=== PATIENT | female | born 1975 | race Caucasian/White ===

== ENCOUNTER → 2020-04-30 15:29 | Outpatient (CLI) | payer OTHER, SELFPAY ==
--- NOTE | ~2020-04-30 | US_ITS ---
EXAMINATION: US axilla LT HISTORY: Palpable, persistent mass of the left axilla for one month TECHNIQUE: Targeted ultrasound of the left axilla was performed. FINDINGS: There is no evidence of suspicious cystic or solid mass in the vicinity of the reported lef t axilla mass. Normal-appearing lymph nodes are present. IMPRESSION: No specific sonographic correlate is identified for the left axillary mass. Further evaluation at thi s time should be based on clinical assessment. Continued follow-up physical examination is recommende d. BI-RADS Category 1: Negative Reviewed, dictated and finalized at location A. IMPRESSION: No specific sonographic correlate is identified for the left axillary mass. Fur ther evaluation at this time should be based on clinical assessment. Continued follow-up physical examination is recommended. BI-RADS Category 1: Negative
== END ==
PROVIDERS: Visit Provider Nurse Practitioner
DX: R22.2 Localized swelling, mass and lump, trunk (principal)
CPT/HCPCS: 76882

== ENCOUNTER → 2020-09-05 11:18 | Outpatient (CLI) | payer OTHER, SELFPAY ==
--- NOTE | ~2020-09-05 | MM_ITS ---
EXAMINATION: MM screening [facility] BI w peter HISTORY: Screening mammogram TECHNIQUE: Craniocaudal and mediolateral oblique 3-D tomosynthesis images were obtained and synthetic 2-D images were generated. CAD analysis was submitted and interpreted. COMPARISON: 07/07/2019, 07/01/2018, 03/01/2017 BREAST PARENCHYMAL COMPOSITION: There are scattered areas of fibroglandular density. FINDINGS: There is no evidence of suspicious mass, calcification, or architectural distortion to sugg est malignancy in either breast. There has been no suspicious interval change. IMPRESSION: 1. No mammographic evidence of malignancy. 2. Recommend routine screening mammography in one year. BI-RADS Category 1: Negative Reviewed, dictated and finalized at location A. RDS MANAGEMENT MANAGER
== END ==
PROVIDERS: PCP Physician Assistant; Visit Provider Nurse Practitioner
DX: Z12.31 Encounter for screening mammogram for malignant neoplasm of breast (principal)
CPT/HCPCS: 77063; 77067

== ENCOUNTER → 2021-09-08 15:03 | Outpatient (CLI) | payer OTHER, SELFPAY ==
--- NOTE | ~2021-09-08 | MM_ITS ---
EXAMINATION: MM screening [facility] BI w peter HISTORY: Screening mammogram TECHNIQUE: Craniocaudal and mediolateral oblique 3-D tomosynthesis images were obtained and synthetic 2-D images were generated. CAD analysis was submitted and interpreted. COMPARISON: 09/05/2020, 07/07/2019, 07/01/2018 BREAST PARENCHYMAL COMPOSITION: The breasts are heterogeneously dense, which may obscure small masses . FINDINGS: There is no evidence of suspicious mass, calcification, or architectural distortion to sugg est malignancy in either breast. There has been no suspicious interval change. IMPRESSION: 1. No mammographic evidence of malignancy. 2. Recommend routine screening mammography in one year. BI-RADS Category 1: Negative Reviewed, dictated and finalized at location A. SAFETY INSPECTOR
== END ==
PROVIDERS: PCP Physician Assistant; Visit Provider Nurse Practitioner
DX: Z12.31 Encounter for screening mammogram for malignant neoplasm of breast (principal)
CPT/HCPCS: 77063; 77067

== ENCOUNTER → 2022-08-03 14:50 | Outpatient (CLI) | payer OTHER, SELFPAY ==
--- NOTE | ~2022-08-03 | US_ITS ---
EXAMINATION: US pelvic complete w TV DATE: 08/03/2022 15:22 INDICATION: Enlarged uterus. Comparison:Ultrasound dated 04/29/2015 TECHNIQUE: Multiple transabdominal and endovaginal sonographic images of the pelvis performed. FINDINGS: The uterus measures 9.6 x 5.4 x 5.8 cm. There is a uterine fibroid measuring 3.1 x 3 x 2.8 cm. The endometrial complex measures 9 mm. The right ovary measures 3.4 x 2.2 x 2.2 cm and the left ovary measures 2.5 x 1.8 x 2.1 cm. There ar e small follicles in each ovary. There is a right renal cyst measuring 2.4 cm. Normal doppler signal in both ovaries. There is no free fluid in the pelvis. There are no abnormal masses seen on either side. IMPRESSION: 1. Enlarged fibroid uterus. 2: Right renal cyst measuring 2.4 cm. Reviewed, dictated and finalized at location A. ITY SYSTEMS SPECIALIST
== END ==
PROVIDERS: PCP Physician Assistant; Visit Provider Obstetrics & Gynecology Gynecology
DX: R19.09 Other intra-abdominal and pelvic swelling, mass and lump (principal); D25.9 Leiomyoma of uterus, unspecified; N28.1 Cyst of kidney, acquired
CPT/HCPCS: 76830; 76856

== ENCOUNTER 2023-07-04 10:10 | Emergency (ER) | payer BC, SELFPAY ==
--- NOTE | 2023-07-04 10:13 | ED.URI ---
HPI - URI/Sore Throat General Chief Complaint: Upper Respiratory Infection Stated Complaint: Cough Time Seen by Provider: 07/04/23 10:29 Source: patient, RN notes reviewed and old records reviewed Mode of arrival: ambulatory Limitations: no limitations History of Present Illness HPI Narrative: 47-year-old female presents to the [facility] with complaints of a cough for 10 days First couple days she has had congestion, that has subsided but the cough has not gone away. Has been through an entire box of Mucinex max. Denies shortness of breath, chest pain, abdominal pain. Denies fevers recently. Onset (ago): day(s) (10) Treatments prior to arrival: cold medicine Related Data Allergies Allergy/AdvReac Type Severity Reaction Status Date / Time NA Allergy Mild Uncoded 12/19/08 12:07 NKA Allergy Unknown Uncoded 02/27/03 12:39 NKDA Allergy Unknown Uncoded 02/27/03 12:39 Review of Systems Review of Systems: All systems reviewed & are unremarkable except as noted in HPI and below Constitutional: Constitutional: Reports no additional constitutional complaints Eyes: Eyes: Reports no additional eye complaints ENT: Reports system reviewed and no additional complaints, except as documented Cardiovascular: Cardiovascular: Reports no additional cardiovascular complaints, Denies chest pain and Denies dyspnea Respiratory: Respiratory: Reports as per HPI, Denies chest congestion, Reports cough and Denies dyspnea Gastrointestinal: Gastrointestinal: Reports no additional gastrointestinal complaints, Denies abdominal pain, Denies nausea and Denies vomiting Musculoskeletal: Musculoskeletal: Reports no additional musculoskeletal complaints Integumentary/Breasts: Skin/Breast: Reports system reviewed and no additional complaints, except as docu Neurologic: Reports system reviewed and no additional complaints, except as documented Psychiatric: Psychiatric: Reports no additional psychiatric complaints Allergic/Immunologic: Allergic/Immunologic: Reports no additional allergic/immunologic complaints [facility] Past Medical History Medical History (Updated 07/05/23 @ 00:00 by Kirk Escalante) B12 deficiency Social History Social History Smoking status: Never smoker Alcohol intake: never Comments At the time of my signature, I reviewed and agree with the nursing past medical, surgical, social, and family history. There is no relevant family history pertinent to the patient complaint. Exam Const: General: cooperative, healthy appearing, comfortable, no acute distress, well developed, alert and well nourished Nutritional Appearance: well nourished Orientation/consciousness: patient oriented x3 Limitations: no limitations HENMT: Head: normal to inspection Ears: hearing grossly normal bilaterally and external ears normal Face/Nose/Sinus: Normal external nose present, Normal nares present, Normal nasal mucous membranes and turbinates present, normal facial exam and face symmetric Face and sinus: normal facial exam and face symmetric Mouth: Yes Normal oral and palatal mucosa present, Yes lip normal and Yes moist mucous membranes Throat: posterior oropharynx normal and uvula midline Eyes: General: appearance normal, both eyes and all related structures Alignment and Position: alignment normal Periorbital: periorbital findings normal Pupils: Equal, round and reactive pupils present EOM: EOMs intact bilaterally Neck: Neck: normal visual inspection, full ROM, no lymphadenopathy and no meningeal signs Chest: Chest palpation & inspection: normal inspection of the chest Resp: Effort & Inspection: normal respiratory effort and able to speak in complete sentences Auscultation: no crackles, no rales, no rhonchi and wheezes (Left lower) Cardio: Rate: regular rate Rhythm: regular rhythm Back/Spine/Pelvis: Cervical Spine: cervical ROM normal Skin: General skin exam: normal color
[2023-07-04 10:22] VITALS: BP 129/82; PULSE 67; RESP 16; TEMP 36.4; O2SAT 100
== END 2023-07-04 10:42 | disposition home or self-care (01) ==
PROVIDERS: Emergency Provider Nurse Practitioner; PCP Physician Assistant
DX: J40 Bronchitis, not specified as acute or chronic (principal)
CPT/HCPCS: 99203; G0463

== ENCOUNTER → 2023-09-24 11:12 | Outpatient (CLI) | payer BC, SELFPAY ==
--- NOTE | ~2023-09-24 | MM_ITS ---
EXAMINATION: MM screening [facility] BI w peter HISTORY: Screening TECHNIQUE: Craniocaudal and mediolateral oblique 3-D tomosynthesis images were obtained and synthetic 2-D images were generated. CAD analysis was submitted and interpreted. COMPARISON: Comparison to multiple prior studies sequentially, with oldest reviewed study dated 06/07. BREAST PARENCHYMAL COMPOSITION: Breast composed of scattered areas of fibroglandular density FINDINGS: There is no evidence of suspicious mass, calcification, or architectural distortion to sugg est malignancy in either breast. There has been no suspicious interval change. IMPRESSION: 1. No mammographic evidence of malignancy. 2. Recommend routine screening mammography in one year. BI-RADS Category 1: Negative Reviewed, dictated and finalized at location A. OGRAPHER SECRETARY
== END ==
PROVIDERS: PCP Obstetrics & Gynecology Gynecology; Visit Provider Obstetrics & Gynecology Gynecology
DX: Z12.31 Encounter for screening mammogram for malignant neoplasm of breast (principal)
CPT/HCPCS: 77063; 77067

== ENCOUNTER 2023-12-13 15:40 | Outpatient (CLI) | payer BC, SELFPAY ==
--- NOTE | ~2023-12-13 | US_ITS ---
Pelvic ultrasound. Clinical History: Pelvic pain Technique: Realtime transabdominal and transvaginal scanning of the pelvis was performed. Color flow Doppler and Doppler spectral analysis were performed. Findings: The uterus is anteverted. The endometrial stripe has a thickness of 9 mm. Posterior wall f ibroid measures 3.9 cm in diameter. The right ovary measures 1.8 x 1.8 x 1.4 cm. No significant right ovarian or adnexal mass is seen. The left ovary measures 2.5 x 1.8 x 3.2 cm. No significant left ovarian or adnexal mass is seen. Vascular flow present in both ovaries on Doppler spectral analysis. There is no evidence of free fluid in the cul de sac. Impression: 3.9 cm uterine fibroid. Reviewed, dictated and finalized at [facility]. Impression: 3.9 cm uterine fibroid.
== END 2023-12-13 15:41 ==
PROVIDERS: PCP Obstetrics & Gynecology Gynecology; Visit Provider Nurse Practitioner
DX: R10.2 Pelvic and perineal pain (principal); D25.9 Leiomyoma of uterus, unspecified
CPT/HCPCS: 76830

== ENCOUNTER 2024-11-24 10:10 | Outpatient (CLI) | payer BC, SELFPAY ==
--- NOTE | ~2024-11-24 | MM_ITS ---
EXAMINATION: MM screening paul BI w peter HISTORY: Screening TECHNIQUE: Craniocaudal and mediolateral oblique 3-D tomosynthesis images were obtained and synthetic 2-D images were generated. CAD analysis was submitted and interpreted. COMPARISON: Comparison to multiple prior studies sequentially, with oldest reviewed study dated 03/01. BREAST PARENCHYMAL COMPOSITION: Not dense: There are scattered areas of fibroglandular density. FINDINGS: There is a new small subareolar mass in the right breast seen on CC view. The left breast i s stable without evidence for malignancy. IMPRESSION: 1. New small subareolar mass of the right breast on CC view only. 2. Additional mammographic views and possible breast ultrasound are recommended. BI-RADS Category 0: Incomplete: Needs additional imaging evaluation. Reviewed, dictated and finalized at location B. IMPRESSION: 1. New small subareolar mass of the right breast on CC view only. 2. Additional mammographic views and possible breast ultrasound are recommended . BI-RADS Category 0: Incomplete: Needs additional imaging evaluation.
--- OUTSIDE RECORDS SUMMARY | 2024-11-24 11:18 | XMS_ITS | Data Portability ---
Author Organization [facility] Looking for Gamers, Main Office Address [address] [place] [address] Assessment No assessment recorded. Plan of Treatment Reminders Order Date Submit Date Provider Last Modified By Organization Details Last Modified Time Details Appointments None recorded. Lab HbA1c (hemoglobi n A1c), blood 2022 023 [place] [facility], [id number] , [address], [place], [address], 3 12:10:37 Referral None recorded. Procedures None recorded. Surgeries None recorded. Imaging MRI, brain, w/wo contrast 2022 023 [email or web address] [facility], [address], [address], [place], [address], 3 12:46:26 Medication Orders None recorded. Patient TargetsNo targets recorded. Patient InstructionsNo instructions recorded. Reason for Referral None Reported. Results Created Date Observation Date Name Description Value Unit Range Abnormal Flag Note LastModifiedBy Organization Detail LastModifiedTime 05/02/2005/03/2021 HEMOG LOBIN A1C hemoglobin A1C 5.7 % 4.8-5. 6 above high normal Predi abete s: 5.7 - 6.4 Diabe darleen: >6.4 Glyce fabrice contr ol for adult s with diabe darleen: <7.0 Not Available [facility] ([facility]) [address] [facility], [place], [address], 05/03/2021 07:10:53 05/02/20 21 05/03/2021 VITAM IN B12 AND FOLAT E vitamin B12 317 pg/mL 232-12 45 Not Available [facility] ([facility]) [address] [facility], [place], [address], 05/03/2021 07:10:53 05/02/20 21 05/03/2021 VITAM IN B12 AND FOLAT E folate (folic acid), serum 19.8 NG/mL >3.0 A serum folat e zuleika ntrat ion of less than 3.1 ng/mL is consi dered to repre sent clini natalio defic iency . Not Available [facility] ([facility]) [address] [facility], [place], [address], 05/03/2021 07:10:53 05/02/20 21 05/03/2021 LIPID PANEL W/ CHOL/ HDL RATIO cholesterol, total 211 mg/dL 100-19 9 above high normal Not Available [facility] ([facility]) [address] [place], [address], 05/03/2021 07:10:52 05/02/20 21 05/03/2021 LIPID PANEL W/ CHOL/ HDL RATIO triglyceride s 93 mg/dL 0-149 Not Available [facility] ([facility]) [address] [place], [address], 05/03/2021 07:10:52 05/02/20 21 05/03/2021 LIPID PANEL W/ CHOL/ HDL RATIO HDL cholesterol 73 mg/dL >39 Not Available [facility] ([facility]) [address] [place], [address], 05/03/2021 07:10:52 05/02/20 21 05/03/2021 LIPID PANEL W/ CHOL/ HDL RATIO VLDL cholesterol natalio 16 mg/dL 5-40 Not Available [facility] ([facility]) [address] [place], [address], 05/03/2021 07:10:52 05/02/20 21 05/03/2021 LIPID PANEL W/ CHOL/ HDL RATIO LDL chol calc ([facility]) 122 mg/dL 0-99 above high normal Not Available [facility] ([facility]) [address] 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, [place], [address], 05/03/2021 07:10:52 05/02/20 21 05/03/2021 LIPID PANEL W/ CHOL/ HDL RATIO T. chol/HDL ratio 2.9 ratio 0.0-4. 4 T. Chol/ HDL Ratio Men Women 1/2 Avg.R isk 3.4 3.3 Avg.R isk 5.0 4.4 2X Avg.R isk 9.6 7.1 3X Avg.R isk 23.4 11.0 Not Available [facility] ([facility]) [address] [facility], [place], [address], 05/03/2021 07:10:52 05/02/20 21 05/03/2021 URINA LYSIS , ROUTI NE specific gravity 1.015 1.005- 1.030 Not Available [facility] ([facility]) [address] [facility], [place], [address], 05/03/2021 07:10:52 05/02/20 21 05/03/2021 URINA LYSIS , ROUTI NE pH 7.0 5.0-7. 5 Not Available [facility] ([facility]) [address] [place], [address], 05/03/2021 07:10:52 05/02/20 21 05/03/2021 URINA LYSIS , ROUTI NE urine-color yellow yellow Not Available [facility] ([facility]) [address] [facility], [place], [address], 05/03/2021 07:10:52 05/02/20 21 05/03/2021 URINA LYSIS , ROUTI NE appearance clear clear Not Available [facility] ([facility]) [address] [facility], [place], [address], 05/03/2021 07:10:52 05/02/20 21 05/03/2021 URINA LYSIS , ROUTI NE WBC esterase negati ve negati ve Not Available [facility] ([facility]) [address] [facility], [place], [address], 05/03/2021 07:10:52 05/02/20 21 05/03/2021 URINA LYSIS , ROUTI NE protein negati ve negati ve/tra ce Not Available [facility] ([facility]) [address] [facility], [place], [address], 05/03/2021 07:10:52 05/02/20 21 05/03/2021 URINA LYSIS , ROUTI NE glucose negati ve negati ve Not Available [facility] ([facility]) [address] [facility], [place], [address], 05/03/2021 07:10:52 05/02/20 21 05/03/2021 URINA LYSIS , ROUTI NE ketones negati ve negati ve Not Available [facility] ([facility]) [address] [facility], [place], [address], 05/03/2021 07:10:52 05/02/20 21 05/03/2021 URINA LYSIS , ROUTI NE occult blood negati ve negati ve Not Available [facility] ([facility]) [address] [facility], [place], [address], 05/03/2021 07:10:52 05/02/20 21 05/03/2021 URINA LYSIS , ROUTI NE bilirubin negati ve negati ve Not Available [facility] ([facility]) [address] [facility], [place], [address], 05/03/2021 07:10:52 05/02/20 21 05/03/2021 URINA LYSIS , ROUTI NE urobilinogen ,semi-qn 0.2 mg/dL 0.2-1. 0 Not Available [facility] ([facility]) [address] [place], [address], 05/03/2021 07:10:52 05/02/20 21 05/03/2021 URINA LYSIS , ROUTI NE nitrite, urine negati ve negati ve Not Available [facility] ([facility]) [address] [place], [address], 05/03/2021 07:10:52 05/02/2005/03/2021 URINA LYSIS , ROUTI NE microscopic examination commen t Micro scopi c not indic ated and not perfo rmed. Not Available [facility] ([facility]) [address] [place], [address], 05/03/2021 07:10:52 05/02/20 21 05/03/2021 COMP. METAB OLIC PANEL (14) glucose 100 mg/dL 65-99 above high normal Not Available [facility] ([facility]) [address] [place], [address], 05/03/2021 07:10:51 05/02/20 21 05/03/2021 COMP. METAB OLIC PANEL (14) BUN 10 mg/dL 6-24 Not Available [facility] ([facility]) [address] [place], [address], 05/03/2021 07:10:51 05/02/20 21 05/03/2021 COMP. METAB OLIC PANEL (14) creatinine 0.78 mg/dL 0.57-1 .00 Not Available [facility] ([facility]) [address] [place], [address], 05/03/2021 07:10:51 05/02/20 21 05/03/2021 COMP. METAB OLIC PANEL (14) eGFR if nonafricn AM 91 mL/mi n/1.7 3 >59 Not Available [facility] ([facility]) [address] [place], [address], 05/03/2021 07:10:51 05/02/20 21 05/03/2021 COMP. METAB OLIC PANEL (14) eGFR if africn AM 105 mL/mi n/1.7 3 >59 Lab sophia curre ntly repor ts eGFR in compl iance with the curre nt recom menda tions of the [facility]io n[facility] [employer] ation . [facility] will updat e repor ting as new guide lines are publi shed from the NKF-A SN Task force . Not Available [facility] ([facility]) [address] [facility], [place], [address], 05/03/2021 07:10:51 05/02/20 21 05/03/2021 COMP. METAB OLIC PANEL (14) BUN/creatini ne ratio 13 9-23 Not Available [facility] ([facility]) [address] [place], [address], 05/03/2021 07:10:51 05/02/20 21 05/03/2021 COMP. METAB OLIC PANEL (14) sodium 140 mmol/ L 134-14 4 Not Available [facility] ([facility]) [address] [place], [address], 05/03/2021 07:10:51 05/02/20 21 05/03/2021 COMP. METAB OLIC PANEL (14) potassium 4.6 mmol/ L 3.5-5. 2 Not Available [facility] ([facility]) [address] [place], [address], 05/03/2021 07:10:51 05/02/20 21 05/03/2021 COMP. METAB OLIC PANEL (14) chloride 105 mmol/ L 96-106 Not Available [facility] ([facility]) [address] [place], [address], 05/03/2021 07:10:51 05/02/20 21 05/03/2021 COMP. METAB OLIC PANEL (14) carbon dioxide, total 23 mmol/ L Not Available [facility] ([facility]) [address] [place], [address], 05/03/2021 07:10:51 05/02/20 21 05/03/2021 COMP. METAB OLIC PANEL (14) calcium 9.3 mg/dL 8.7-10 .2 Not Available [facility] ([facility]) [address] [place], [address], 05/03/2021 07:10:51 05/02/20 21 05/03/2021 COMP. METAB OLIC PANEL (14) protein, total 6.7 g/dL 6.0-8. 5 Not Available [facility] ([facility]) [address] [facility] [place], [address], 05/03/2021 07:10:51 05/02/20 21 05/03/2021 COMP. METAB OLIC PANEL (14) albumin 4.2 g/dL 3.8-4. 8 Not Available [facility] ([facility]) [address] [place], [address], 05/03/2021 07:10:51 05/02/20 21 05/03/2021 COMP. METAB OLIC PANEL (14) globulin, total 2.5 g/dL 1.5-4. 5 Not Available [facility] ([facility]) [address] [facility] [place], [address], 05/03/2021 07:10:51 05/02/20 21 05/03/2021 COMP. METAB OLIC PANEL (14) A/G ratio 1.7 1.2-2. 2 Not Available [facility] ([facility]) [address] [facility] [place], [address], 05/03/2021 07:10:51 05/02/20 21 05/03/2021 COMP. METAB OLIC PANEL (14) bilirubin, total 1.0 mg/dL 0.0-1. 2 Not Available [facility] ([facility]) [address] [facility], [place], [address], 05/03/2021 07:10:51 05/02/20 21 05/03/2021 COMP. METAB OLIC PANEL (14) alkaline phosphatase 56 IU/L 48-121 Not Available [facility] ([facility]) [address] [facility], [place], [address], 05/03/2021 07:10:51 05/02/20 21 05/03/2021 COMP. METAB OLIC PANEL (14) AST (SGOT) 20 IU/L 0-40 Not Available [facility] ([facility]) [address] [facility], [place], [address], 05/03/2021 07:10:51 05/02/20 21 05/03/2021 COMP. METAB OLIC PANEL (14) ALT (SGPT) 17 IU/L 0-32 Not Available [facility] ([facility]) [address] [facility], [place], [address], 05/03/2021 07:10:51 05/02/20 21 05/03/2021 CBC WITH DIFFE RENTI AL/PL ATELE T WBC 6.8 x10e3 /uL 3.4-10 .8 Not Available [facility] ([facility]) [address] [place], [address], 05/03/2021 07:10:51 05/02/20 21 05/03/2021 CBC WITH DIFFE RENTI AL/PL ATELE T RBC 4.60 x10e6 /uL 3.77-5 .28 Not Available [facility] ([facility]) [address] [place], [address], 05/03/2021 07:10:51 05/02/20 21 05/03/2021 CBC WITH DIFFE RENTI AL/PL ATELE T hemoglobin 14.1 g/dL 11.1-1 5.9 Not Available [facility] ([facility]) [address] [facility], [place], [address], 05/03/2021 07:10:51 05/02/20 21 05/03/2021 CBC WITH DIFFE RENTI AL/PL ATELE T hematocrit 43.0 % 34.0-4 6.6 Not Available [facility] ([facility]) [address] [facility], [place], [address], 05/03/2021 07:10:51 05/02/20 21 05/03/2021 CBC WITH DIFFE RENTI AL/PL ATELE T MCV 94 fL 79-97 Not Available [facility] ([facility]) [address] [facility], [place], [address], 05/03/2021 07:10:51 05/02/20 21 05/03/2021 CBC WITH DIFFE RENTI AL/PL ATELE T MCH 30.7 pg 26.6-3 3.0 Not Available [facility] ([facility]) [address] [place], [address], 05/03/2021 07:10:51 05/02/2005/03/2021 CBC WITH DIFFE RENTI AL/PL ATELE T MCHC 32.8 g/dL 31.5-3 5.7 Not Available [facility] ([facility]) [address] [place], [address], 05/03/2021 07:10:51 05/02/20 21 05/03/2021 CBC WITH DIFFE RENTI AL/PL ATELE T RDW 12.6 % 11.7-1 5.4 Not Available [facility] ([facility]) [address] [place], [address], 05/03/2021 07:10:51 08/27/20 21 05/03/2021 CBC WITH DIFFE RENTI AL/PL ATELE T platelets 189 x10e3 /uL 150-45 0 Not Available [facility] ([facility]) [address] [facility], [place], [address], 05/03/2021 07:10:51 05/02/20 21 05/03/2021 CBC WITH DIFFE RENTI AL/PL ATELE T neutrophils 60 % not estab. Not Available [facility] ([facility]) [address] [facility], [place], [address], 05/03/2021 07:10:51 05/02/20 21 05/03/2021 CBC WITH DIFFE RENTI AL/PL ATELE T lymphs 31 % not estab. Not Available [facility] ([facility]) [address] [facility], [place], [address], 05/03/2021 07:10:51 05/02/20 21 05/03/2021 CBC WITH DIFFE RENTI AL/PL ATELE T monocytes 6 % not estab. Not Available [facility] ([facility]) [address] [facility], [place], [address], 05/03/2021 07:10:51 05/02/20 21 05/03/2021 CBC WITH DIFFE RENTI AL/PL ATELE T eos 2 % not estab. Not Available [facility] ([facility]) [address] [facility], [place], [address], 05/03/2021 07:10:51 05/02/20 21 05/03/2021 CBC WITH DIFFE RENTI AL/PL ATELE T basos 1 % not estab. Not Available [facility] ([facility]) [address] [facility], [place], [address], 05/03/2021 07:10:51 05/02/20 21 05/03/2021 CBC WITH DIFFE RENTI AL/PL ATELE T immature cells edger operator Not Available [facility] ([facility]) [address] [facility], [place], [address], 05/03/2021 07:10:51 05/02/20 21 05/03/2021 CBC WITH DIFFE RENTI AL/PL ATELE T neutrophils (absolute) 4.1 x10e3 /uL 1.4-7. 0 Not Available [facility] ([facility]) [address] [facility], [place], [address], 05/03/2021 07:10:51 05/02/20 21 05/03/2021 CBC WITH DIFFE RENTI AL/PL ATELE T lymphs (absolute) 2.1 x10e3 /uL 0.7-3. 1 Not Available [facility] ([facility]) [address] [facility], [place], [address], 05/03/2021 07:10:51 05/02/20 21 05/03/2021 CBC WITH DIFFE RENTI AL/PL ATELE T monocytes(ab solute) 0.4 x10e3 /uL 0.1-0. 9 Not Available [facility] ([facility]) [address] [place], [address], 05/03/2021 07:10:51 05/02/20 21 05/03/2021 CBC WITH DIFFE RENTI AL/PL ATELE T eos (absolute) 0.2 x10e3 /uL 0.0-0. 4 Not Available [facility] ([facility]) [address] [place], [address], 05/03/2021 07:10:51 05/02/20 21 05/03/2021 CBC WITH DIFFE RENTI AL/PL ATELE T baso (absolute) 0.1 x10e3 /uL 0.0-0. 2 Not Available [facility] ([facility]) [address] [place], [address], 05/03/2021 07:10:51 05/02/20 21 05/03/2021 CBC WITH DIFFE RENTI AL/PL ATELE T immature granulocytes 0 % not estab. Not Available [facility] ([facility]) [address] [facility], [place], [address], 05/03/2021 07:10:51 05/02/20 21 05/03/2021 CBC WITH DIFFE RENTI AL/PL ATELE T immature grans (abs) 0.0 x10e3 /uL 0.0-0. 1 Not Available [facility] ([facility]) [address] [facility], [place], [address], 05/03/2021 07:10:51 05/02/2005/03/2021 CBC WITH DIFFE RENTI AL/PL ATELE T NRBC edger operator Not Available [facility] ([facility]) [address] [facility], [place], [address], 05/03/2021 07:10:51 05/02/20 21 05/03/2021 CBC WITH DIFFE RENTI AL/PL ATELE T hematology comments: edger operator Not Available [facility] ([facility]) [address] [facility], [place], [address], 05/03/2021 07:10:51 05/02/20 21 05/03/2021 TSH+F REE T4 TSH 1.830 uIU/m L 0.450- 4.500 Not Available [facility] ([facility]) [address] [place], [address], 05/03/2021 07:10:50 05/02/20 21 05/03/2021 TSH+F REE T4 T4,free(dire ct) 1.25 NG/dL 0.82-1 .77 Not Available [facility] ([facility]) [address] [facility], [place], [address], 05/03/2021 07:10:50 07/27/20 22 07/20/2022 CT, abdom en + pelvi s, w/o contr ast No observ ation record ed. MIGRATION. [id number] [facility] [address] [place], [address], 11/04/2022 09:15:06 07/28/20 22 07/04/2022 colon oscop y peggy moran (PROC ) No observ ation record ed. MIGRATION. [id number] Leo Mckeon MD [address] [place], [address], 11/04/2022 09:15:06 09/15/19 23 08/03/2022 US, pelvi s, compl ete No observ ation record ed. [facility]. [id number] [facility] [address] [place] [address] , [place], [address], 11/04/2022 09:15:06 09/16/19 23 08/03/2022 US, pelvi s, compl ete No observ ation record ed. MIGRATION. [address] , [place], [address], 11/04/2022 09:15:06 Result Notes None recorded. Problems Name Problem SNOMED Code Status Onset Date Resolution Date Notes Provider Name and Address Organization Details Recorded Time Abscess 106612679 Active Not Available [facility] 3 09:13:29 Infection of sebaceous cyst 607430038 Active Not Available [facility] 3 09:13:29 Pharyngitis 389728852 Active 2016 Not Available [facility] 3 09:13:29 Vitamin B12 deficiency (non anemic) 27241894 Active 2021 Not Available [facility] 3 09:13:29 Otitis media 65293233 Active 2016 Not Available [facility] 3 09:13:29 Magnesium deficiency 711719927 Active 2022 LAKHWINDER Saucedo [address] [facility], [place], [address] , [place] [facility] 3 11:18:02 Spasm 58576896 Active 2022 LAKHWINDER Saucedo [address], [place], [address] , [place] [facility] 3 11:18:18 Tremor 15613411 Active 2022 LAKHWINDER Saucedo [address], [place], [address] , [place] [facility] 3 10:20:14 Lower urinary tract symptoms 365690244 Active 2022 LAKHWINDER Saucedo [address], [place], [address] , [place] [facility] 3 13:11:18 Problem Notes None recorded. Procedures Surgical History Date Name Laterality Status Provider Name and Address Organization Details Recorded Time 09/06/19 08 Date of Last Colonoscopy completed Not Available [facility] 11/04/2022 09:11:21 Imaging Results Imaging Date Name Status LastModified by Organiz ation Details LastModified Time 08/03/2022 US, pelvis, complete completed [id number] [facility] , [place], [address], 11/04/2022 09:15:06 08/03/2022 US, pelvis, complete completed [id number] [facility] , [place], [address], 11/04/2022 09:15:06 07/04/2022 colonoscopy screening (PROC) completed [id number] Leo Mckeon MD [address] [place], [address], 11/04/2022 09:15:06 07/20/2022 CT, abdomen + pelvis, w/o contrast completed [id number] [facility] [address] [facility] [place], [address], 11/04/2022 09:15:06 Procedure Notes None recorded. Medical Equipment None Reported. Allergies No known drug allergies Medications Name Sig Start Date Stop Date Status Note LastModified by Organization Details LastModified Time BD Luer-Dario Syringe 3 mL 23 x 1 USE WITH B 12 INJECTION S ONCE WEEKLY 04/25 completed Not Available Not Available Not Available amoxicillin 500 mg capsule Take 1 capsule every 12 hours by oral route for 10 days. active Not Available Not Available No t Available prednisone 20 mg tablet active Not Available Not Available Not Available Space Chamber active Not Available Not Available Not Available doxycycline monohydrate 100 mg tablet active Not Available Not Available Not Available cyanocobala min (vit B-12) 1,000 mcg/mL injection solution INJECT 1 ML INTRAMUSC ULARLY ONCE EVERY MONTH DIRECTED active Not Available Not Available No t Available BD Luer-Dario Syringe 3 mL 25 gauge x 1 USE DIRECTED ONE TIME MONTHLY active Not Available Not Available No t Available methylpredn isolone 4 mg tablets in a dose pack FOLLOW PACKAGE DIRECTION S 04/25 completed Not Available Not Available Not Available albuterol sulfate HFA 90 mcg/actuati on aerosol inhaler INHALE 2 PUFFS BY MOUTH 4 TIMES DAILY NEEDED FOR SHORTNESS OF BREATH FOR WHEEZING active Not Available Not Available No t Available Bactrim DS 800 mg-160 mg tablet Take 1 tablet every 12 hours by oral route for 10 days. active Not Available Not Available No t Available nitrofurant oin monohydrate /macrocryst als 100 mg capsule Take 1 capsule every 12 hours by oral route. 2022 active Not Available Not Available Not Avai lable Vitals Date Recorded Body mass index (BMI) Body height Oxygen saturation Oxygen saturation in Arterial blood by Pulse oximetry Heart rate Body temperature Body weight Systolic blood pressure Diastolic blood pressure Provider Name and Address Organization Details Last Updated DateTime 1 24.1 kg/m2 165.1 cm 98 % 98 % 72 /min 98.1 [degF] 72726.8 9 g 110 mm[Hg] 60 mm[Hg] Not Available [facility] 3 09:12:34 Date Recorded Body mass index (BMI) Body height Oxygen saturation Oxygen saturation in Arterial blood by Pulse oximetry Heart rate Respiratory rate Body temperature Body weight Systolic blood pressure Diastolic blood pressure Provider Name and Address Organization Details Last Updated DateTime 2 24.3 kg/m2 165.1 cm 98 % 98 % 68 /min 16 /min 98.2 [degF] 43103.4 9 g 112 mm[Hg] 70 mm[Hg] Not Available [facility] 3 09:12:34 Date Recorded Body height Body mass index (BMI) Body weight Body temperature Heart rate Oxygen saturation Oxygen saturation in Arterial blood by Pulse oximetry Systolic blood pressure Diastolic blood pressure Provider Name and Address Organization Details Last Updated DateTime 3 165.1 cm 24.1 kg/m2 15247.8 9 g 97.6 [degF] 78 /min 98 % 98 % 110 mm[Hg] 68 mm[Hg] Connie Castellano RN [facility] [employer] 3 09:58:08 Social History Question Answer Notes LastModified by Organizat ion Details LastModified Time Tobacco Smoking Status Never Smoker Connie Castellano RN [facility], [facility] Looking [employer] 03/11/2023 09:39:27 Do You Have An Advance Directive? No [id number] Information not available 11/04/2022 What Is Your Level Of Alcohol Consumption? None [id number] Information not available 11/04/2022 If You Are , What Was Your Level Of Alcohol Consumption Prior To ? None [email or web address] Information not available 03/11/2023 Do You Wear A Helmet When Biking? No [email or web address] Information not available 03/11/2023 What Is Your Level Of Caffeine Consumption? None [id number] Information not available 11/04/2022 In The 14 Days Before Symptom Onset, Have You Had Close Contact With A Laboratory-confirm ed COVID-19 While That Case Was Ill? No [id number] Information n ot available 03/11/2023 In The 14 Days Before Symptom Onset, Have You Had Close Contact With A Person Who Is Under Investigation For COVID-19 While That Person Was Ill? No [id number] Information not available 03/11/2023 What Type Of Diet Are You Following? REGULAR [id number] Information not available 11/04/2022 Have There Been Any Changes To Your Family Or Social Situation? No [email or web address] Information no t available 03/11/2023 Are There Any Guns Present In Your Home? No [email or web address] Information not available 03/11/2023 Do You Use Insect Repellent Routinely? Yes [email or web address] Information not available 03/11/2023 Do You Have A Medical Power Of Home Delivery Driver? No [email or web address] Information not available 03/11/2023 What Is Your Relationship Status? [id number] Information not available 11/04/2022 Do You Use Your Seat Belt Or Car Seat Routinely? Yes [email or web address] Information not available 03/11/2023 Do You Have Smoke And Carbon Monoxide Detectors In Your Home? Yes [id number] Information not available 03/11/2023 Do You Feel Stressed (tense, Restless, Nervous, Or Anxious, Or Unable To Sleep At Night)? [id number] [email or web address] Information not available 03/11/2023 Do You Use Any Illicit Or Recreational Drugs? No [email or web address] Information not available 03/11/2023 Do You Use Sunscreen Routinely? Yes [email or web address] Information not available 03/11/2023 Has Tobacco Cessation Counseling Been Provided? No [email or web address] Information not available 03/11/2023 Have You Recently Traveled Abroad? No [email or web address] Information not available 03/11/2023 Do You Have Any Dietary Restrictions? No [email or web address] Information not available 03/11/2023 Do You Or Have You Ever Used Any Other Forms Of Tobacco Or Nicotine? No [email or web address] Information not available 03/11/2023 Sex: Unknown Functional Status Question Answer Note LastModified by Organizat ion Details LastModified Time What is your exercise level? Moderate [id number] Information not available 11/04/2022 Mental Status None recorded. Family History Relationship Description Onset Age of this Age Resolved Age Notes LastModified by Organization Details LastModified Time Maternal Grandmother Diabetes mellitus [id number] Not available 11/04/2022 09:11:23 Maternal Grandmother Family history of malignant neoplasm [email or web address] Not available 02/2023 09:39:27 Paternal Grandmother Diabetes mellitus [id number] Not available 11/04/2022 09:11:24 Paternal Grandmother Malignant tumor of stomach [id number] Not available 02/2023 09:39:27 Maternal Grandfather Malignant neoplasm of bone [email or web address] Not available 02/2023 09:39:27 Father Malignant tumor of stomach [id number] Not available 02/2023 09:39:27 Medical History No medical history recorded. Gynecological History Statement/Question Response Abnormal Pap Y Date of Last Mammogram 10/07/2021 Date of Last Colonoscopy 09/06/2007 Sexually Active? Y Menses Monthly Y Date of Last Pap 03/06/2022 Current Control Method Partner Vas ectomy Obstetrics History GPAL:G 4 P 0 0 2 2 Type Value Spontaneous 2 Living 2 Total 4 Immunizations Vaccine Type Date Status Note Provider Nam e and Address Organization Details Recorded Time Tdap 03/02/2012 completed Not Available [facility] 11/04/2022 09:14:55 MMR 08/14/2015 completed Not Available [facility] 11/04/2022 09:14:55 Past Encounters Encounter ID Performer Location Encounter Start Date Encounter Closed Date Diagnosis/Indication Diagnosis SNOMED-CT Code Diagnosis ICD10 Code Diagnosis Note [id number] [facility] [address] [place] [address] 04/25/2021 00:00:00 05/04/2021 22:46:17 [id number] [facility] [address] [place] [address] 04/27/2022 00:00:00 05/06/2022 20:23:24 [id number] LAKHWINDER Saucedo [facility] [address] [place] [address] 03/11/2023 09:39:04 03/11/2023 10:30:21 Adult health examination 305720490 Z00.01 annual wellness completed Tremor 00136326 R25.1 pt reports per portal message discussion originally that she had a episode lasting two hours of lower extremity primarily, but some torso tremoring. Video of this was shown to provider to validate the intensity of legs tremors. was about 2am onset. no other signs or symptoms and she has not had any since. labs are all normal. MRI brain w/wo contrast is warranted for proper evaluation . Past pregn brady history of gestational diabetes mellitus 323687964 Z86.32 a1c due. fasting sugar was normal. Health Concerns Section Related Observation LastModified by Organization Detai ls LastModified Time None Recorded Concern Status LastModified by Organization Details LastModified Time None Recorded Advance Directives Directive N: Payers Encounter Date Sequence Insurance Name Policy Number Policy Meeks Covered Member ID Meeks Member ID Guarantor Name 03/11/2023 1 [facility]: (PPO) [id number] 1 Keshav Waller [id number] Rosmery Waller Notes Date Note Type Note Provider Name and Address Organization Details Recorded Time 04/25/2021 text/html Generic HPI TemplateReported bypatient.Notes:Pt is here today for her wellness exam, doing fine, no complaints Not Available [employer] 05/04/2021 22:46:17 04/27/2022 text/html Generic HPI TemplateReported bypatient.Notes:Pt is here for her wellness. No chronic prob or meds. Not Available [employer] 05/06/2022 20:23:24 03/11/2023 text/html Generic HPI TemplateReported bypatient.Notes:Repor ts episode lasting nearly 2 hours recently in the middle of the night of legs intensely tremoring, and feeling it some in torso. no trigger noted. no other signs of symptoms. no illness or fever. no fatigue. no new meds. no new foods. no injury. no new exercise. wellness LAKHWINDER Saucedo [address] [place] [address], [place] [address], [place], [address], [employer] 03/15/2023 14:56:31 OBGyn Episode No OBEpisode recorded.
--- OUTSIDE RECORDS SUMMARY | 2024-11-24 11:18 | XMS_ITS | Clinical Summary ---
Author Organization [facility] [address] Address [address] [place] [address] Care Team Providers Care Extension Course Counselor Name Role Phone Unknown, Notinfile Primary Care Provider Unavail able Allergies No known active allergies Medications No known medications Active Problems No known active problems Encounters Date Type Department Care Team Description 09/12/2024 8:45 AM SELF PAY COLLECTOR Office Visit [facility] at [address] [address] Lynda Faust NP Acute intractable headache, unspecified headache type (Primary Dx); Dizziness; Elevated blood pressure reading in office without diagnosis of hypertension; Tachycardia from Last 3 Months Social History Tobacco Use Types Packs/Day Years Used Date Smoking Tobacco: Never Assessed Comments Unknown Sex and Gender Information Value Date Recorded Sex Assigned at Not on file Legal Sex Female 1:20 AM SELF PAY COLLECTOR Gender Identity Not on file Sexual Orientation Not on file Obstetrics History Last Filed Vital Signs Vital Sign Reading Time Taken Comments Blood Pressure 150/88 09/12/2024 8:42 AM SELF PAY COLLECTOR Pulse 106 09/12/2024 8:42 AM SELF PAY COLLECTOR Temperature 36.7 C (98.1 F) 09/12/2024 8:42 AM SELF PAY COLLECTOR Respiratory Rate 18 09/12/2024 8:42 AM SELF PAY COLLECTOR Oxygen Saturation 97% 09/12/2024 8:42 AM SELF PAY COLLECTOR Inhaled Oxygen Concentration - - Weight 66.6 kg (146 lb 12.8 oz) 09/12/2024 8:42 AM SELF PAY COLLECTOR Height 162.6 cm (5' 4 ) 09/12/2024 8:42 AM SELF PAY COLLECTOR Body Mass Index 25.2 09/12/2024 8:42 AM SELF PAY COLLECTOR Plan of Treatment Health Maintenance Due Date Last Done Comments Breast Cancer Screening-Mammogram 1974 Cervical Cancer Screening 1974 Colon Cancer Screening-Colonoscopy 1974 Depression Screening 1974 Hepatitis C Screening 1974 Hepatitis B Screening 1992 Regular Well Visit/Exam 18-64 1992 DTaP/Tdap/Td Vaccine (2 - Td or Tdap) 03/02/2022 03/02/2012 Influenza Vaccine (#1) 2024 Zoster Vaccine (1 of 2) 2024 Pneumococcal vaccine <65 Aged Out No longer eligible based on patient's age to complete this topic Insurance [facility] ACC[facility] Care Teams Extension Course Counselor Relationship Specialty Start Date End Date Unknown, Notinfile PCP - General 09/12/24
--- OUTSIDE RECORDS SUMMARY | 2024-11-24 11:18 | XMS_ITS | Clinical Summary ---
Author Organization [facility] [employer] Address [address] [place] [address] Care Team Providers Care Mold Capper Name Role Phone Unavailable Primary Care Provider Unavailabl e Source Comments [facility] [employer],non-owned Affiliates and Associated Physician Practices is amultiple site organization consisting of ambulatory clinics and hospital sitesin [place], [place], [place] and [place]. This disclosure is being madepursuant to the Care Everywhere program and may not contain all information available regarding this patient. Last updated 18.[employer] [facility] [employer] Allergies No known active allergies Medications Be aware that medications may not be up to date on this document. Always verify current medications with the patient. No known medications Family History Medical History Relation Name Comments Cancer - Colon Father Relation Name Status Comments Father Social History Tobacco Use Types Packs/Day Years Used Date Smoking Tobacco: Never Smokeless Tobacco: Never Sex and Gender Information Value Date Recorded Sex Assigned at Not on file Gender Identity Not on file Sexual Orientation Not on file Last Filed Vital Signs Vital Sign Reading Time Taken Comments Blood Pressure 114/72 11/07/2018 5:48 PM LIQUEFIED NATURAL GAS PLANT OPERATOR Pulse 81 11/07/2018 5:48 PM LIQUEFIED NATURAL GAS PLANT OPERATOR Temperature 37.2 C (98.9 F) 11/07/2018 5:48 PM LIQUEFIED NATURAL GAS PLANT OPERATOR Respiratory Rate 16 11/07/2018 5:48 PM LIQUEFIED NATURAL GAS PLANT OPERATOR Oxygen Saturation 99% 11/07/2018 5:48 PM LIQUEFIED NATURAL GAS PLANT OPERATOR Inhaled Oxygen Concentration - - Weight 65.8 kg (145 lb) 11/07/2018 5:48 PM LIQUEFIED NATURAL GAS PLANT OPERATOR Height 165.1 cm (5' 5 ) 11/07/2018 5:48 PM LIQUEFIED NAT[employer] G[employer] PLANT OPERATOR Body Mass Index 24.13 11/07/2018 5:48 PM LIQUEFIED NATURAL GAS PLANT OPERATOR Plan of Treatment Health Maintenance Due Date Last Done Comments COLOGUARD (AGES 45-75) - COL ON CA SCREENING 1974 COLON MONITORING 1974 COLONOSCOPY - COLON CA SCREENING 1974 CT COLONOGRAPHY - COLON CA SCREENING 1974 Colorectal Cancer Screening 1974 FIT - COLON CA SCREENING 1974 FLEX SIG - COLON CA SCREENING 1974 LIPID TESTING 1974 MAMMOGRAM 1974 PAP SMEAR 1974 HIV SCREENING 1989 HEPATITIS C SCREENING 10/11/1992 DTAP/TDAP/TD VACCINES (1 - Tdap) 1993 HEPATITIS B VACCINE (1 of 3 - 19+ 3-dose series) 1993 COVID-19 VACCINE ( - 2023-2 5 season) 2024 INFLUENZA VACCINE (#1) 2024 DEPRESSION SCREENING 09/06/2024 PNEUMOCOCCAL VACCINE 50+ (1 of 1 - PCV) 2024 ZOSTER VACCINE (1 of 2) 2024 HIB VACCINE Aged Out No longer eligi ble based on patient's age to complete this topic HPV VACCINE Aged Out No longer eligi ble based on patient's age to complete this topic MENINGOCOCCAL (Group B) VACC INE SHARED DECISION-MAKING Aged Out No longer eligibl e based on patient's age to complete this topic MENINGOCOCCAL GROUPS A/C/Y/W VACCINE Aged Out No longer eligible b ased on patient's age to complete this topic PNEUMOCOCCAL VACCINE Aged Out No long er eligible based on patient's age to complete this topic Rosmery Waller Personal/Family Self 1975 [address] [facility] [place] [address]"
--- OUTSIDE RECORDS SUMMARY | 2024-11-24 11:18 | XMS_ITS | Referral Summary ---
Author Organization [address] [address] Care Team Providers Care Business Development Coordinator Name Role Phone Unknown, Notinfile Primary Care Provider Unavail able Encounters Date Type Department Care Team Description 09/12/2024 8:45 AM ELECTRICAL MACHINIST Office Visit [facility] at [address] [address] Lynda Faust NP Acute intractable headache, unspecified headache type (Primary Dx); Dizziness; Elevated blood pressure reading in office without diagnosis of hypertension; Tachycardia from Last 3 Months Allergies No known active allergies Medications No known medications Active Problems No known active problems Social History Tobacco Use Types Packs/Day Years Used Date Smoking Tobacco: Never Assessed Comments Unknown Sex and Gender Information Value Date Recorded Sex Assigned at Not on file Legal Sex Female 1:20 AM ELECTRICAL MACHINIST Gender Identity Not on file Sexual Orientation Not on file Last Filed Vital Signs Vital Sign Reading Time Taken Comments Blood Pressure 150/88 09/12/2024 8:42 AM ELECTRICAL MACHINIST Pulse 106 09/12/2024 8:42 AM ELECTRICAL MACHINIST Temperature 36.7 C (98.1 F) 09/12/2024 8:42 AM ELECTRICAL MACHINIST Respiratory Rate 18 09/12/2024 8:42 AM ELECTRICAL MACHINIST Oxygen Saturation 97% 09/12/2024 8:42 AM ELECTRICAL MACHINIST Inhaled Oxygen Concentration - - Weight 66.6 kg (146 lb 12.8 oz) 09/12/2024 8:42 AM ELECTRICAL MACHINIST Height 162.6 cm (5' 4 ) 09/12/2024 8:42 AM ELECTRICAL MACHINIST Body Mass Index 25.2 09/12/2024 8:42 AM ELECTRICAL MACHINIST Plan of Treatment Not on file Insurance [employer] Care Teams Business Development Coordinator Relationship Specialty Start Date End Date Unknown, Notinfile PCP - General 09/12/24
== END 2024-11-24 10:11 | disposition home or self-care (01) ==
LOC: ANHIMG 10:12
PROVIDERS: PCP Physician Assistant; Visit Provider Obstetrics & Gynecology Gynecology
DX: Z12.31 Encounter for screening mammogram for malignant neoplasm of breast (principal); N63.41 Unspecified lump in right breast, subareolar
CPT/HCPCS: 77063; 77067

== ENCOUNTER 2024-12-07 09:00 | Outpatient (CLI) | payer BC, SELFPAY ==
--- NOTE | ~2024-12-07 | MMUS_ITS ---
EXAMINATION: US breast RT complete, MM diagnostic paul RT w peter HISTORY: Right periareolar/subareolar asymmetries/mass TECHNIQUE: Additional 3-D tomosynthesis images of the right breast were performed and synthetic 2-D i mages were generated. CAD analysis was submitted and interpreted. High resolution complete right aspen st ultrasound was performed. COMPARISON: Comparison to multiple prior studies sequentially, with oldest reviewed study dated 06/07. BREAST PARENCHYMAL COMPOSITION: Dense: The breasts are heterogeneously dense, which may obscure small masses FINDINGS: MAMMOGRAPHIC FINDINGS: No discrete mass identified. No suspicious calcifications or architectural distortion. ULTRASOUND: Complete US of all 4 quadrants of the right breast/s and retroareolar region was reviewed. At 6:00 ne ar the areola there is a 4 mm cyst. At 10:00 near the areola there is a 6 mm cyst. At 11:00 near the areola there is a 6 mm cyst. No suspicious masses to suggest malignancy. IMPRESSION: 1. No evidence for malignancy in the right breast. Benign findings. 2. Routine yearly screening mammogram and regular clinical breast examination are recommended. BI-RADS Category 2: Benign finding(s). Reviewed, dictated and finalized at location A. IMPRESSION: 1. No evidence for malignancy in the right breast. Benign findings. 2. Routine yearly screening mammogram and regular clinical breast examination a re recommended. BI-RADS Category 2: Benign finding(s).
== END 2024-12-07 09:01 | disposition home or self-care (01) ==
LOC: MICIMG 09:03
PROVIDERS: PCP Physician Assistant; Visit Provider Nurse Practitioner Women's Health
DX: R92.8 Other abnormal and inconclusive findings on diagnostic imaging of breast (principal)
CPT/HCPCS: 76641; 77061; 77065; G0279